=== PATIENT | female | born 1990 ===

== ENCOUNTER 2017-11-01 21:38 | Emergency (ER) | payer OTHER ==
[~2017-11-01] VITALS: Ht 152.4 cm; Wt 63.8 kg
[~2017-11-01 21:38] MED LIST: FERR325T51 PO; PRENCAP38 PO
[2017-11-01 21:45] VITALS: TEMP 36.7; Ht 152.4 cm; Wt 63.8 kg
[2017-11-01 23:45] LABS: BASO % 0.1 %; BASO ABS # 0.01 K/uL (0-0.2); EOS % 0.4 %; EOS ABS # 0.04 K/uL (0-0.5); HEMATOCRIT 39.4 % (37-47); IG# 0.02 K/uL (0.00-0.02); LYMPH % 41.9 %; LYMPH ABS # 3.88 K/uL (1.2-3.4); MEAN CELL VOLUME 82.1 fL (80-100); MEAN CORPUSCULAR HEMOGLOBIN 27.1 pg (25-34); MEAN PLATELET VOLUME 10.9 fL (7.4-10.4); MONO % 4.8 %; MONO ABS # 0.44 K/uL (0.11-0.59); NEUT % 52.6 %; NEUT ABS # 4.86 K/uL (1.4-6.5); PLATELET COUNT 251 K/uL (130-400); RED CELL DISTRIBUTION WIDTH CV 13.5 % (11.5-14.5); RED CELL DISTRIBUTION WIDTH SD 40.6 fL (36.4-46.3); WHITE BLOOD COUNT 9.25 K/uL (4.8-10.8)
[2017-11-01] MEDS ORDERED: OPTIRAY 320 IV PRN (23:45)
[2017-11-01 23:52] LABS: ISTAT CREATININE 0.8 mg/dl (0.6-1.3); ISTAT IONIZED CALCIUM 1.19 mmol/l (1.12-1.32); ISTAT POTASSIUM 3.2 mEq/L (3.3-5.0)
[2017-11-02 00:07] LABS: ALBUMIN 4.1 gm/dl (3.4-5.0); ALT/SGPT 28 U/L (12-78); BLOOD UREA NITROGEN 9 mg/dl (7-18); CALCIUM 9.4 mg/dl (8.5-10.1); CARBON DIOXIDE 23 mmol/L (21-32); CREATININE 0.88 mg/dl (0.60-1.20); GLUCOSE 107 mg/dl (70-99); POTASSIUM 3.1 mmol/L (3.5-5.1); SODIUM 136 mmol/L (136-145)
[2017-11-02 00:12] LABS: ALKALINE PHOSPHATASE 95 U/L (45-117); AST/SGOT 21 U/L (15-37); CKMB 0.6 ng/ml (0.5-3.6); TOTAL PROTEIN 8.8 gm/dl (6.4-8.2)
[2017-11-02 00:38] VITALS: O2SAT 100
[2017-11-02] MEDS ORDERED: POTASSIUM CHLORIDE 20 MEQ TABCR PO STA (02:04)
--- NOTE | 2017-11-02 02:13 | EMERGENCY ROOM VISIT NOTE ---
History First contact with patient: 22:34 Chief Complaint: CHEST PAIN Stated Complaint: L SIDE DISCOMFORT, CHEST PAIN, L ARM PAIN- CARD HX Nursing Triage Summary: Pt reporting SOB starting at 1800. Pt states then the left jaw and arm started to feel "weird" and had an episode of numbness and tingling. No numbness or tingling now but "weird feeling". 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 History of Present Illness The patient is a 27 year old female who presents to the Emergency Room with complaints of tingling in the left side of her face and left arm. The patient states that her symptoms began approximately 4 hours ago. She states that she was walking and developed a feeling like a spasm in the side of her face. She states that she has had several episodes of similar symptoms in the past, but always attributed them to stress. She states that the symptoms lasted for longer than usual today, prompting her to come here for evaluation. She does report she had some slight shortness of breath while walking. The patient reports a history of congenital heart defect. She has never had surgery. She reports she has coarctation of the aorta and has been told that she has a dilatation of the aorta. She was supposed to follow-up with cardiology recently but has not done this. She denies any chest pain, palpitations, lightheadedness or syncope. Review of Systems A complete 10 point review of systems was reviewed with the patient with pertinent positives and negatives as per history of present illness. All else were negative. Past Medical/Surgical History Medical Problems: (1) 37 weeks gestation of (2) Maternal congenital cardiac anomaly affecting , antepartum, third trimester (3) Spontaneous rupture of amniotic membranes Social History Smoking Status: Never Smoker Drug Use: none Occupation Status: [employer] student Current/Historical Medications No Active Prescriptions or Reported Meds Physical Exam Vital Signs Date Time Temp Pulse Resp B/P (MAP) Pulse Ox O2 Delivery O2 Flow Rate FiO2 11/02/17 02:24 73 18 134/63 99 Room Air 11/02/17 00:38 100 Room Air 11/02/17 00:31 69/ 100 110/72 11/01/17 23:47 75 11/01/17 23:33 134/80 11/01/17 23:10 149/76 134/66 11/01/17 22:45 98 Room Air 11/01/17 21:45 36.7 75 20 136/85 100 Room Air Physical Exam VITALS: Vitals are noted on the nurse's note and reviewed by myself. Vital signs stable. GENERAL: This is a 27-year-old female, in no acute distress, nondiaphoretic, well-developed well-nourished. SKIN: The skin was without rashes. HEAD: Normocephalic atraumatic. EARS: External auditory canals clear, tympanic membranes pearly bland without erythema or effusion bilaterally. EYES: Pupils equal round and reactive to light and accommodation. Extraocular movements intact. MOUTH: Mucous membranes moist. Tonsils are not enlarged. Pharynx without erythema or exudate. NECK: Supple without nuchal rigidity. No lymphadenopathy. HEART: Regular rate and rhythm. Grade 3 systolic murmur heard at the left sternal border. LUNGS: Clear to auscultation bilaterally without wheezes, rales or rhonchi. MUSCULOSKELETAL: Strength 5/5 throughout. NEURO: Patient was alert and oriented to person place and time. Medical Decision & Procedures ER Provider Diagnostic Interpretation: CTA CHEST: No evidence of pulmonary embolism or aortic dissection. Coarctation of the aorta is noted. Minor atelectatic changes. No pneumothorax or pleural effusion. Radiologist: Radha Bowens MD Laboratory Results 11/01/17 23:25 Red Blood Count 4.80, Mean Corpuscular Volume 82.1, Mean Corpuscular Hemoglobin 27.1, Mean Corpuscular Hemoglobin Concent 33.0, Mean Platelet Volume 10.9, Neutrophils (%) (Auto) 52.6, Lymphocytes (%) (Auto) 41.9, Monocytes (%) (Auto) 4.8, Eosinophils (%) (Auto) 0.4, Basophils (%) (Auto) 0.1, Neutrophils # (Auto) 4.86, Lymphocytes # (Auto) 3.88, Monocytes # (Auto) 0.44, Eosinophils # (Auto) 0.04, Basophils # (Auto) 0.01 11/01/17 23:25 Test 11/01/17 22:54 11/01/17 23:25 11/01/17 23:39 11/01/17 23:40 Creatine Kinase MB Ratio (0-3.0) White Blood Count 9.25 K/uL (4.8-10.8) Red Blood Count 4.80 M/uL (4.2-5.4) Hemoglobin 13.0 g/dL (12.0-16.0) Hematocrit 39.4 % (37-47) Mean Corpuscular Volume 82.1 fL (80-100) Mean Corpuscular Hemoglobin 27.1 pg (25-34) Mean Corpuscular Hemoglobin Concent 33.0 g/dl (32-36) Platelet Count 251 K/uL (130-400) Mean Platelet Volume 10.9 fL (7.4-10.4) Neutrophils (%) (Auto) 52.6 % Lymphocytes (%) (Auto) 41.9 % Monocytes (%) (Auto) 4.8 % Eosinophils (%) (Auto) 0.4 % Basophils (%) (Auto) 0.1 % Neutrophils # (Auto) 4.86 K/uL (1.4-6.5) Lymphocytes # (Auto) 3.88 K/uL (1.2-3.4) Monocytes # (Auto) 0.44 K/uL (0.11-0.59) Eosinophils # (Auto) 0.04 K/uL (0-0.5) Basophils # (Auto) 0.01 K/uL (0-0.2) RDW Standard Deviation 40.6 fL (36.4-46.3) RDW Coefficient of Variation 13.5 % (11.5-14.5) Immature Granulocyte % (Auto) 0.2 % Immature Granulocyte # (Auto) 0.02 K/uL (0.00-0.02) Est Creatinine Clear Calc Drug Dose 78.7 ml/min Estimated GFR () 102.9 Estimated GFR (Non- 88.8 BUN/Creatinine Ratio 10.6 (10-20) Calcium Level 9.4 mg/dl (8.5-10.1) Total Bilirubin 0.6 mg/dl (0.2-1) Aspartate Amino Transf (AST/SGOT) 21 U/L (15-37) Alanine Aminotransferase (ALT/SGPT) 28 U/L (12-78) Alkaline Phosphatase 95 U/L (45-117) Creatine Kinase MB 0.6 ng/ml (0.5-3.6) Total Protein 8.8 gm/dl (6.4-8.2) Albumin 4.1 gm/dl (3.4-5.0) Globulin 4.7 gm/dl (2.5-4.0) Albumin/Globulin Ratio 0.9 (0.9-2) Bedside Troponin I < 0.030 ng/ml (0-0.045) Bedside Hemoglobin 13.9 g/dl (12.0-16.0) Bedside Hematocrit 41 % (37-47) Bedside Sodium 141 mEq/L (135-144) Bedside Potassium 3.2 mEq/L (3.3-5.0) Bedside Chloride 103 mEq/L (101-112) Bedside Total CO2 24 mEq/l (24-31) Anion Gap 18.0 mmol/L (16-25) Bedside Blood Urea Nitrogen 9 mg/dl (7-18) Bedside Creatinine 0.8 mg/dl (0.6-1.3) Bedside Glucose (other) 114 mg/dl (70-99) Bedside Ionized Calcium (Julian) 1.19 mmol/l (1.12-1.32) Medications Administered Medications (Trade) Dose Ordered Sig/Charmaine Route Start Time Stop Time Status Last Admin Dose Admin Potassium Chloride (Klor-Con M10) 20 meq STK-MED ONCE .ROUTE 11/02/17 02:21 11/02/17 02:22 DC 11/02/17 02:21 20 MEQ ECG Rate (beats per minute): 69 Rhythm: normal sinus Findings: no acute ischemic change, no ectopy Comparison ECG Date: no prior available Medical Decision Differential diagnosis includes acute coronary syndrome, pulmonary embolism, pneumothorax, pericarditis, myocarditis, endocarditis, anxiety, musculoskeletal pain, GERD, costochondritis, pneumonia, among others. The patient is a 27-year-old female who presents today complaining of tingling of the left side of her face and left arm. Labs revealed no leukocytosis or anemia. Troponin was not elevated. EKG shows no acute ischemia. Due to the patient's history of coarctation of the aorta and possible dilatation of the aorta, a CTA of the chest was performed to rule out dissection. This was read by statrad and was negative for dissection or pulmonary embolism. The patient was reassured. 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 She was found to be hypokalemic and was given a dose of oral potassium. She was instructed to keep her follow-up appointments with cardiology and to follow-up with a primary care provider as well. The patient's case was reviewed with Dr. Foley, ED attending physician, who agreed with my assessment and treatment plan. Based on the patient's presentation and work up, I feel the patient is stable for outpatient treatment. The patient was educated to return to the emergency department for any worsening of their current condition or new/concerning symptoms. She will follow up with her PCP and epoxy coatings installer. Medication Reconcilliation Current Medication List: was personally reviewed by me Blood Pressure Screening Patient's blood pressure: Normal blood pressure Impression Primary Impression: Facial tingling sensation Departure Information Dispostion Home / Self-Care Condition GOOD Prescriptions No Active Prescriptions or Reported Meds Referrals Brit Katz M.D. (PCP) Patient Instructions My [facility] Additional Instructions You have been treated in the Emergency Department for your symptoms. Laboratory results and Imaging Studies have ruled out any cardiac or pulmonary cause of your chest pain. For pain control, you can use the following [id number] medicines (if >12 yo): - Regular strength (325mg/tab) Tylenol (acetaminophen) 2 tabs every 4-6 hours as needed. Do not exceed 12 tablets in a 24 hour period. Avoid taking more than 4 grams (4000 mg) of Tylenol per day. This includes any other sources of acetaminophen you may take on a regular basis. - Regular strength (200 mg/tab) Advil (ibuprofen) 1-2 tabs every 4-6 hours as needed. Do not exceed a dose of 3200 mg per day. You should schedule a follow-up appointment with your Primary Care Provider in 2 -3 days for further evaluation from today's Emergency Department visit. Contact your epoxy coatings installer to schedule a follow-up appointment as well. Return to the Emergency Department if your current symptoms worsen despite treatment course outlined above, or if you develop any of the following symptoms : worsening chest pain, associated jaw/arm pain, nausea, dizziness, shortness of breath, bloody cough, or fainting.
[2017-11-02] MEDS ORDERED: POTASSIUM CHLORIDE 10 MEQ TABCR ONE (02:21)
[2017-11-02 02:24] VITALS: BP 134/63; PULSE 73; O2SAT 99
--- NOTE | 2017-11-02 06:36 | DIAGNOSTIC IMAGING REPORT ---
CHEST ONE VIEW PORTABLE CLINICAL HISTORY: Chest pain. COMPARISON STUDY: No previous studies for comparison. FINDINGS: Lung volumes are normal. Lungs are clear. No pneumothorax or pleural effusion is noted. There is no evidence for pulmonary edema. Cardiomediastinal silhouette is normal. IMPRESSION: No acute cardiopulmonary findings. Electronically signed by: Thai Judd M.D. 11/02/2017 6:34 AM Dictated Date/Time: 11/02/2017 6:31 AM
--- NOTE | 2017-11-02 08:09 | DIAGNOSTIC IMAGING REPORT ---
CHEST COMBO ANGIO DISSECTION CLINICAL HISTORY: Chest pain. Left sided discomfort. History of aortic dilatation. Cardiac history. COMPARISON STUDY: Chest radiograph November 01, 2017. TECHNIQUE: Unenhanced and arterial phase imaging of the chest was performed. Injection of 101 cc of Optiray 320 IV was uneventful. Sagittal and coronal reconstructions were viewed as well as maximal intensity projections on an independent 3-D workstation. FINDINGS: No thoracic aortic dilatation is noted. There is no evidence for intramural hematoma within the thoracic aorta. There is moderate focal narrowing of the proximal descending thoracic aorta at the level of the aortic isthmus with moderate stenosis. There is no thoracic aortic dissection. The size of the heart is normal. No pericardial effusion is noted. No enlarged thoracic lymph nodes are present. There is no pneumothorax or pleural effusion. No consolidation is noted. Bony thorax is unremarkable. There is no evidence for significant collateral formation within the chest. Upper abdomen is unremarkable. IMPRESSION: 1. Focal moderate stenosis of the proximal descending thoracic aorta at the level of the aortic isthmus consistent with aortic coarctation. No thoracic aortic dissection. Of note, this finding is associated with multiple cardiac anomalies, including bicuspid aortic valve which cannot be evaluated for on this non gated CT. No CT evidence of significant collateral formation. 2. No acute intrathoracic findings. Electronically signed by: Thai Judd M.D. 11/02/2017 8:08 AM Dictated Date/Time: 11/02/2017 8:01 AM
== END 2017-11-02 02:20 | disposition home or self-care (01) ==
LOC: C.EDB 21:40 → C.EDC 11-02 02:20
DX: R20.2 Paresthesia of skin (principal); Q25.1 Coarctation of aorta; Q24.9 Congenital malformation of heart, unspecified